=== PATIENT | male | born 1940 | race Caucasian/White ===

== ENCOUNTER 2020-03-10 18:39 | Inpatient (IN) | payer MEDICARE, OTHER ==
[~2020-03-10] VITALS: Ht 172.7 cm; Wt 77.1 kg
[2020-03-10] MEDS ORDERED: PIPERACILLIN /TAZOBACTAM 3.375 G in IV D5W 50 ML IV ONE (19:00)
[2020-03-10] MEDS ORDERED: IV NS 0.9% 1,000 ML BAG IV ONE (19:00)
[2020-03-10] MEDS ORDERED: ACETAMINOPHEN 650 MG/SUPP.RECT RC ONE ×2 (19:00→19:43)
--- NOTE | 2020-03-10 19:00 | NUR ---
PT SEEN AND EXAMINED BY .
--- NOTE | 2020-03-10 19:00 | NUR ---
PT BIBPA FROM SNF C/O FAILURE TO THRIVE AND DECREASED URINE OUTPUT FOR 3 DAYS, PT IS AAOX0, NOT IN RESPIRATORY DISTRESS, HOOKED TO MONITOR, KEPT RESTED AND COMFORTABLE, WILL CONTINUE TO MONITOR.
[2020-03-10] MEDS ORDERED: PIPERACILLIN /TAZOBACTAM 3.375 G VIAL IV ONE (19:43)
--- NOTE | 2020-03-10 19:45 | NUR ---
FLU AND COVID SWAB OBTAINED AND SENT TO LAB.
--- NOTE | 2020-03-10 19:50 | NUR ---
IV LINE ESTABLISHED, BLOOD DRAWN AND SENT TO LAB.
--- NOTE | 2020-03-10 20:00 | NUR ---
URINE SEPCIMEN COLLECTED VIA STRAIGHT CATH AND SENT TO LAB.
[2020-03-10 20:12] LABS: BASOPHILS % (AUTO) 0.5 % (0.0-2.0); EOSINOPHILS % (AUTO) 0.4 % (0.0-6.0); HEMATOCRIT 42 % (39-51); HEMOGLOBIN 14.1 g/dL (13.5-17.5); LYMPHOCYTES # (AUTO) 0.9 /CMM (0.8-4.8); LYMPHOCYTES % (AUTO) 13.1 % (20.0-44.0); MEAN CORPUSCULAR HGB CONC 34 g/dl (31.0-36.0); MEAN CORPUSCULAR VOLUME 89 fL (80-96); MONOCYTES # (AUTO) 0.7 /CMM (0.1-1.30); MONOCYTES % (AUTO) 10.6 % (2.0-12.0); NEUTROPHILS % (AUTO) 75.4 % (43.0-81.0); PLATELET COUNT (AUTO) 238 /CMM (150-450); WHITE BLOOD COUNT (AUTO) 6.6 K/uL (4.3-11.0)
[2020-03-10 20:19] LABS: CALCIUM, SERUM 8.7 mg/dL (8.5-10.1); CREATININE 0.8 mg/dL (0.6-1.3); POTASSIUM 3.8 mmol/L (3.5-5.1)
[2020-03-10 20:20] LABS: CALCIUM, SERUM 8.7 mg/dL (8.5-10.1); CARBON DIOXIDE 26 mmol/L (21-32); CHLORIDE 101 mmol/L (98-107); CREATININE 0.8 mg/dL (0.6-1.3); GLUCOSE 103 mg/dL (74-106); POTASSIUM 3.8 mmol/L (3.5-5.1); SODIUM SERUM 137 mmol/L (136-145); UREA NITROGEN, BLOOD 19 mg/dL (7-18)
[2020-03-10 20:35] LABS: ALBUMIN 2.6 g/dL (3.4-5.0); BILIRUBIN,TOTAL 0.9 mg/dL (0.2-1.0); TOTAL PROTEIN, SERUM 7.6 g/dL (6.4-8.2)
[2020-03-10 20:36] LABS: ALANINE AMINOTRANSFERASE 65 U/L (12-78); ALBUMIN 2.6 g/dL (3.4-5.0); ALKALINE PHOSPHATASE 92 U/L (46-116); ASPARTATE AMINOTRANSFERASE 97 U/L (15-37); BILIRUBIN,DIRECT 0.2 mg/dL (0.0-0.2); BILIRUBIN,TOTAL 0.9 mg/dL (0.2-1.0); TOTAL PROTEIN, SERUM 7.7 g/dL (6.4-8.2)
[2020-03-10] MEDS ORDERED: FINA5TAB3 PO (20:47)
[2020-03-10] MEDS ORDERED: ATOR10TA PO (20:47)
[2020-03-10] MEDS ORDERED: PROP10TA10 PO (20:47)
[2020-03-10] MEDS ORDERED: MEMA10TA56 PO (20:47)
[2020-03-10] MEDS ORDERED: BETH50TA PO (20:47)
[2020-03-10] MEDS ORDERED: CALC355O18 (20:47)
[2020-03-10] MEDS ORDERED: BETH50TA8 PO (20:47)
[2020-03-10] MEDS ORDERED: LEVE500T9 PO (20:47)
[2020-03-10 20:56] LABS: APPEARANCE,URINE Slightly Cloudy (CLEAR); BILIRUBIN,URINE SMALL (NEGATIVE); BLOOD, URINE Negative Ery/uL (NEGATIVE); COLOR,URINE Yellow (YELLOW); KETONES,URINE Trace (NEGATIVE); LEUKOCYTE ESTERASE ,URINE Negative (NEGATIVE); NITRITE, URINE Negative (NEGATIVE); PROTEIN,URINE 30 mg/dl (NEGATIVE); UGLUCOSE Negative (NEGATIVE)
[2020-03-10 21:12] LABS: BACTERIA,URINE Few /HPF (None Seen); RBC,URINE 0-2 /HPF (0-2); SQUAMOUS EPITHELIAL CELL,UR Few /HPF (None Seen); WBC,URINE 0-2 /HPF (0-3)
[2020-03-10 21:36] LABS: C-REACTIVE PROTEIN 8.6 mg/dL (0.0-0.9)
--- NOTE | 2020-03-10 21:54 | NUR ---
CALLED DR NIXON -LEFT MSG
[2020-03-10 22:00] VITALS: BP 125/63
--- NOTE | 2020-03-10 22:11 | NUR ---
CALLED HOUSE SUP FOR TELE BED
[2020-03-10] MEDS ORDERED: LORAZEPAM INJ 2 MG/ML VIAL ONE (23:27)
[2020-03-10] MEDS ORDERED: HALOPERIDOL LACTATE INJ 5 MG/ML VIAL ONE (23:28)
--- NOTE | 2020-03-10 23:40 | NUR ---
REPORT GIVEN TO KHUSHI VOGEL FOR SARAY.
[2020-03-11] VITALS: BP 125/63
[2020-03-11] MEDS ORDERED: HALOPERIDOL LACTATE INJ 5 MG/ML VIAL IM ONE
--- NOTE | 2020-03-11 | NUR ---
RN NOTES RECEIVED PT. FROM ER WITH DX. OF PNA, RESPIRATORY FAILURE, POSSIBLE COVID-19, PT. ALREADY PULLED OUT HIS IV ACCESS, TRYING TO HIT THE STAFF, SKIN ASSESSMENT DONE, SIDERAILSUPX2,, CONTINUE TO MONITOR
[2020-03-11] MEDS ORDERED: IV NS 0.9% 1,000 ML BAG IV SCH ×2 (01:00→03:00)
--- NOTE | 2020-03-11 01:30 | NUR ---
RN NOTES ER NURSE CAME UP AND ISERTED A LINE ON THE LEFT WRIST GAUGE 20
[2020-03-11] MEDS ORDERED: IV NS 0.9% 1,000 ML IV PRN (03:00)
[2020-03-11 04:00] VITALS: BP 142/91
[2020-03-11 05:37] LABS: CALCIUM, SERUM 7.8 mg/dL (8.5-10.1); CARBON DIOXIDE 19 mmol/L (21-32); CHLORIDE 103 mmol/L (98-107); CREATININE 0.8 mg/dL (0.6-1.3); GLUCOSE 112 mg/dL (74-106); SODIUM SERUM 136 mmol/L (136-145); UREA NITROGEN, BLOOD 15 mg/dL (7-18)
--- NOTE | 2020-03-11 06:44 | NUR ---
RN NOTES AWAKE, MORNING CARE RENDERED, NOT IN DISTRESS, NO PAIN NOTED, SIDERAILSUPX2, PT. NEEDS ATTENDED
--- NOTE | 2020-03-11 06:55 | NUR ---
RN NOTES SPOKE TO DR. NIXON AND INFORRMED HIM THAT PT WAS TRYING TO PULL POUT HIS IV ACCESS, TRYING TO HIT THE STAFF SINCE SHE CAME-UP , ASKED FOR RESTRAINT ORDER, DR. NIXON ORDERED, BILATERAL SOFT WRIST RESTRAINT, ORDER NOTED AND CARRIED OUT
--- NOTE | 2020-03-11 07:40 | NUR ---
RN NOTES RECEIVED PATIENT IN BEDRESTING COMFORTABLY IN MODERATE HIGH BACK REST. A/OX1. ON OXYGEN 2LPM/NC. NO S/S OF ACUTE RESPIRATORY DISTRESS AND NO C/O PAIN AT THIS TIME. NOTED WITH BILATERAL SOFE WRIST RESTRAINT. IV PRESENT ON LEFT FA, SIZE 20 WITH NS RUNNING @50ML/HR, INTACT & PATENT. ON ISOLATION PRECAUTION TO R/O COVID. SAFETY MEASURES IN PLACE. BED LOCKED, SIDE RAILS X2, CALL LIGHT WITHIN REACH. WILL CONTINUE TO MONITOR.
--- NOTE | 2020-03-11 09:00 | NUR ---
RN NOTE report received from [place] PURI for SARAY.
--- NOTE | 2020-03-11 10:30 | NUR ---
RN NOTE Received T.O. order from Dr. Dick to continue all home medications except for Urecholine. Also to add Lovenox 40meq sub-q for DVT prophylaxis.
[2020-03-11] MEDS: LEVETIRACETAM (250 MG) 250 MG TABLET PO SCH ×2 (10:58→20:50)
--- NOTE | 2020-03-11 11:19 | NUR ---
RN NOTE report given to Jose PURI. Patient transferred to [facility] [place].
--- NOTE | 2020-03-11 11:25 | NUR ---
MS RN NOTE REPORT RECEIVED FROM ALLYN PURI IN [place]. PRIOR TO DC OF TELE MONITORING PATIENT WAS SINUS RHYTHM HR 94. PATIENT IN NO ACUTE DISTRESS. NO SOB NOTED. PATIENT BREATHING IS EVEN AND UNLABORED. PATIENT BREATHING ON OXYGEN 2L NC SATURATING >95% SPO2. PATIENT VITAL SIGNS WNL. PATIENT MAINTAIN ON ISOLATION PRECAUTIONS. PATIENT BED ALARM IS ON. HOB IS ELEVATED. PATIENT NOTED WITH BILATERAL SOFT WRIST RESTRAINTS, NOTED WITH GOOD CIRCULATION. PATIENT BED IS LOCKED AND IN LOWEST POSITION. CALL LIGHT WITHIN REACH. WILL CONTINUE TO MONITOR.
[2020-03-11] MEDS: POTASSIUM CHLORIDE 20 MEQ TAB.PRT.SR PO SCH ×3 (11:43→14:14)
[2020-03-11] MEDS ORDERED: BETHANECHOL CHLORIDE 50 MG TABLET PO SCH (13:00)
--- NOTE | 2020-03-11 14:08 | NUR ---
MS RN NOTE SPOKE WITH DR. NIXON. PER ORDER TO DISCONTINUE IV FLUIDS. Addendum: 03/11/20 at 1857 by DARIEN WOODS RN MS RN NOTE SPOKE WITH DR. NIXON. PATIENT DRINKING FLUIDS WITH ASSIST. PER ORDER TO DISCONTINUE IV FLUIDS.
[2020-03-11 16:00] VITALS: BP 131/85
[2020-03-11] MEDS: ATORVASTATIN 10 MG TABLET PO SCH (17:31)
[2020-03-11] MEDS: FINASTERIDE (5 MG) 5 MG TABLET PO SCH (17:31)
[2020-03-11] MEDS: PROPRANOLOL HCL 10 MG TABLET PO SCH (17:32)
[2020-03-11] MEDS: MEMANTINE HCL 5 MG TABLET PO SCH (17:32)
--- NOTE | 2020-03-11 18:57 | NUR ---
MS RN CLOSING NOTE PATIENT IN NO ACUTE DISTRESS. NO SOB NOTED. PATIENT BREATHING IS EVEN AND UNLABORED. PATIENT BREATHING ON OXYGEN NC AT 2L SATURATING >95% SPO2. PATIENT KEPT, CLEAN, DRY AND COMFORTABLE THROUGHOUT SHIFT. PATIENT TURNED AND REPOSITIONED Q2H. PATIENT WITH BILATERAL SOFT WRIST RESTRAINTS, NOTED WITH GOOD CIRCULATION. PATIENT BED IS LOCKED AND IN LOWEST POSITION. BED ALARM IS ON. HOB IS ELEVATED. CALL LIGHT WITHIN REACH. WILL ENDORSE CARE TO PM SHIFT FOR SARAY.
--- NOTE | 2020-03-11 19:30 | NUR ---
MS RN NOTE: PATIENT RESTING IN BED, NO ACUTE DISTRESS NOTED. BREATHING EVEN AND UNLABORED, NO SOB NOTED. IV TO LFA IN PLACE. BILATERAL WRIST RESTRAINTS IN PLACE WITH GOOD CIRCULATION. ISOLATION PRECAUTIONS OBSERVED. BED LOCKED AND IN LOWEST POSITION, CALL LIGHT IN REACH. WILL CONTINUE TO MONITOR.
[2020-03-11 20:15] VITALS: BP 118/82
[2020-03-11] MEDS: ENOXAPARIN SODIUM 40 MG/0.4 ML DISP.SYRIN SQ SCH (20:51)
--- NOTE | 2020-03-12 03:00 | NUR ---
MS RN NOTE: PATIENT SLEEPING IN BED, NO ACUTE DISTRESS NOTED. BREATHING EVEN AND UNLABORED, NO SOB NOTED. IV TO LFA IN PLACE. BILATERAL WRIST RESTRAINTS IN PLACE WITH GOOD CIRCULATION. ISOLATION PRECAUTIONS OBSERVED. BED LOCKED AND IN LOWEST POSITION, CALL LIGHT IN REACH. WILL CONTINUE TO MONITOR.
--- NOTE | 2020-03-12 06:10 | NUR ---
MS RN NOTE: PATIENT RESTING IN BED, NO ACUTE DISTRESS NOTED. BREATHING EVEN AND UNLABORED, NO SOB NOTED. IV TO LFA IN PLACE. BILATERAL WRIST RESTRAINTS IN PLACE WITH GOOD CIRCULATION. ISOLATION PRECAUTIONS OBSERVED. BED LOCKED AND IN LOWEST POSITION, CALL LIGHT IN REACH. WILL ENDORSE TO DAY NURSE TO CONTINUE WITH PLAN OF CARE.
--- NOTE | 2020-03-12 07:24 | NUR ---
RN opening notes Patient received on 2L nasal cannula, no sob noted, restraints present and renewed at 655. Bed Ridden, LFA with 20 gauge present. Regular diet, covid results pending. Bed at the lowest setting, call light within reach, side rails up x2.
[2020-03-12 08:00] VITALS: BP 125/84
[2020-03-12] MEDS: MEMANTINE HCL 5 MG TABLET PO SCH ×2 (08:15→17:15)
[2020-03-12] MEDS: PROPRANOLOL HCL 10 MG TABLET PO SCH ×2 (08:15→17:15)
[2020-03-12] MEDS: LEVETIRACETAM (250 MG) 250 MG TABLET PO SCH ×2 (08:15→20:12)
[2020-03-12] MEDS: POTASSIUM CHLORIDE 20 MEQ TAB.PRT.SR PO SCH (08:15)
[2020-03-12 09:57] LABS: CREATININE 0.6 mg/dL (0.6-1.3); POTASSIUM 3.6 mmol/L (3.5-5.1)
[2020-03-12] MEDS: ATORVASTATIN 10 MG TABLET PO SCH (17:15)
[2020-03-12] MEDS: FINASTERIDE (5 MG) 5 MG TABLET PO SCH (17:16)
--- NOTE | 2020-03-12 18:11 | NUR ---
rn closing notes patient remains on 2L nasal cannula, no sob noted, patient denies pain at this time. renew restraints at 0655 AM. regular diet, L FA 20 present. Bed at the lowest setting, call light within reach, side rails up x2. Will give report to NOC RN for SARAY bedside.
--- NOTE | 2020-03-12 19:00 | NUR ---
RN medsurg opening notes Received Pt from morning nurse. Pt is alert and orientedX1 and able to make needs known. Pt is resting in bed comfortably. Respiration is normal in 2 L NC. No SOB. No S/S of distress noted. IV sites at LFA# 20 is clean, intact, patent and SL. Bilateral soft wrist restraints is intact, skin is warm to touch, peripheral pulses checks and offered oral fluids and snacks. Safety precautions is maintained. Contact and droplet precautions are maintained for covid-19. Bed at low position, brakes locked, side rails upX3 padded and call light is within reach. Will continue to monitor.
[2020-03-12 20:00] VITALS: BP 112/71
[2020-03-12] MEDS: ENOXAPARIN SODIUM 40 MG/0.4 ML DISP.SYRIN SQ SCH (20:13)
[2020-03-12 20:56] VITALS: BP 112/71
--- NOTE | 2020-03-12 20:58 | NUR ---
cement kiln operator notes Called and spoke with Dr. Kassandra Victor regarding Pt positive for covid19. Received order from Dr. Victor for ABG in room air stats and connected Pt to heart monitor(telemetry). Order carried out.
[2020-03-12 21:59] LABS: ABG BASE EXCESS -1.7 mmol/L; ABG OXYGEN SATURATION 89.9 % (92.0-98.5); ABG PCO2 28.2 mmHg (35.0-45.0); ABG PH 7.481 (7.350-7.450); ABG PO2 56.2 mmHg (75.0-100.0); AaDO2 59.8 mmHg; COHb 0.4 % (0.5-1.5); MetHb 0.4 % (0.0-1.5); O2Hb 89.2 % (94.0-97.0); SITE, ABG Right Radial; VENT MODE, BG R/A
--- NOTE | 2020-03-12 22:25 | NUR ---
power barker notes ABG result is in. Called palak [facility] and leave a message regarding ABG test result. Awaiting for MD to call back.
[2020-03-13] VITALS (7 sets, daily range): BP systolic 106–128; BP diastolic 64–86
--- NOTE | 2020-03-13 06:51 | NUR ---
manager sharepoint closing notes Pt is alert and orientedX1 and able to make needs known. Pt is resting in bed comfortably. Respiration is normal in 2 L NC. No SOB. No S/S of distress noted. VS is stable. Tele monitor showed SR HR at 76 bpm. IV sites at LFA# 20 is clean, intact, patent and SL. Bilateral soft wrist restraints is intact, skin is warm to touch, skin and circulation checks Q 2hr. Offered oral fluids and snacks. Turned and repositioned Q 2 HR. Skin care provided. Routine meds were given as ordered. Kept Pt clean, dry and comfortable. Safety precautions is maintained. Contact and droplet precautions are maintained for covid-19. Bed at low position, brakes locked, side rails upX3 padded and call light is within reach. Will endorse to morning nurse for SARAY.
--- NOTE | 2020-03-13 07:35 | NUR ---
BRICKLAYER SEWER NOTES PATIENT AWAKE IN BED, NO RESPIRATORY DISTRESS, NO S/S OF DISCOMFORT AT THIS TIME. GRADUATE STUDIES DEAN ON SR 74. SKIN WARM TO TOUCH, IV ACCESS SITE INTACT AND PATENT. BILAT SOFT WRIST RESTRAINTS ON, CHECKED FOR REDNESS AND CIRCULATION. PATIENT'S NEEDS ATTENDED, BED ON LOWEST LOCKED POSITION, CALL LIGHT WITHIN REACH, WILL CONTINUE TO MONITOR.
[2020-03-13] MEDS: LEVETIRACETAM (250 MG) 250 MG TABLET PO SCH ×2 (08:32→20:39)
[2020-03-13] MEDS: POTASSIUM CHLORIDE 20 MEQ TAB.PRT.SR PO SCH (08:33)
[2020-03-13] MEDS: PROPRANOLOL HCL 10 MG TABLET PO SCH ×2 (08:33→17:41)
[2020-03-13] MEDS: MEMANTINE HCL 5 MG TABLET PO SCH ×2 (08:34→17:41)
--- NOTE | 2020-03-13 10:46 | NUR ---
CORPORATE COORDINATOR NOTES INFORMED DR. NIXON THAT PATIENT TESTED POSITIVE FOR COVID ON 03/10, IF ANY ORDERS FOR ABX, NO NEW ORDERS. WILL CONTINUE TO MONITOR.
[2020-03-13] MEDS: FINASTERIDE (5 MG) 5 MG TABLET PO SCH (17:41)
[2020-03-13] MEDS: ATORVASTATIN 10 MG TABLET PO SCH (17:41)
--- NOTE | 2020-03-13 18:41 | NUR ---
MS RN NOTES PATIENT AWAKE WATCHING TV, NO RESPIRATORY DISTRESS, NO C/O PAIN AT THIS TIME. SKIN WARM TO TOUCH, IV ACCESS SITE INTACT AND PATENT. PATIENT'S NEEDS ATTENDED, BED ON LOWEST LOCKED POSITION, CALL LIGHT WITHIN REACH. WILL ENDORSE TO ONCOMING NURSE.
--- NOTE | 2020-03-13 19:25 | NUR ---
MS RN OPENING NOTES PATIENT SLEEPING IN BED, EASY TO AWAKEN. A/OX2. ON 2L NC. NO S/S OF ACUTE RESPIRATORY DISTRESS AND NO C/O PAIN AT THIS TIME. DROPLET/CONTACT PRECAUTION IN PLACE FOR POSITIVE COVID 19. BILATERAL SOFT WRIST RESTRAINTS PRESENT; SKIN CIRCULATION WNL. IV PRESENT ON LEFT FA, SIZE 20, INTACT & PATENT, HEP LOCKED. SAFETY MEASURES IN PLACE AND PATIENT'S NEEDS MET. BED LOCKED, ALARM ON, SIDE RAILS X2, CALL LIGHT WITHIN REACH. WILL CONTINUE TO MONITOR.
[2020-03-13] MEDS: ENOXAPARIN SODIUM 40 MG/0.4 ML DISP.SYRIN SQ SCH (20:40)
[2020-03-14] VITALS: BP 126/78
--- NOTE | 2020-03-14 06:49 | NUR ---
PATHOLOGY SECRETARY CLOSING NOTES PATIENT SLEEPING IN BED, EASY TO AWAKEN. A/OX2. ON 2L NC. NO S/S OF ACUTE RESPIRATORY DISTRESS AND NO C/O PAIN AT THIS TIME. TELE MONITOR READING NSR WITH 1ST DEGREE AV BLOCK, HEART RATE 74. DROPLET/CONTACT PRECAUTIONS REMAIN IN PLACE FOR COVID 19. BILATERAL SOFT WRIST RESTRAINTS ARE CURRENTLY OFF; PATIENT IS CALM AND COOPERATIVE. IV ON LEFT FA, SIZE 20, REMAINS INTACT & PATENT. SAFETY MEASURES IN PLACE AND PATIENT'S NEEDS MET. BED LOCKED, ALARM ON, SIDE RAILS X2, CALL LIGHT WITHIN REACH. WILL ENDORSE TO DAY SHIFT NURSE PLAN OF CARE.
--- NOTE | 2020-03-14 07:20 | NUR ---
UAT TESTER NOTES PATIENT RESTING IN BED, ALERT AND ORIENTED X2, PATIENT ON DROPLET PRECAUTIONS, POSITIVE FOR COVID, SAFETY PRECAUTIONS IN PLACE. PATIENT IN NO RESPIRATORY DISTRESS, ON O2 AT 2LPM VIA NC, NO S/S OF DISCOMFORT OR ANY PAIN AT THIS TIME. BASKET MENDER ON SR 70, SKIN WARM TO TOUCH, BILAT. SOFT WRIST RESTRAINTS CURRENTLY OFF AT THIS TIME, PATIENT COOPERATIVE AND CALM, WILL REASSESS. IV ACCESS SITE INTACT AND PATENT. PATIENT'S NEEDS ATTENDED, BED ON LOWEST LOCKED POSITION, CALL LIGHT WITHIN REACH. WILL CONTINUE TO MONITOR.
[2020-03-14 08:41] VITALS: BP 124/80
[2020-03-14] MEDS: POTASSIUM CHLORIDE 20 MEQ TAB.PRT.SR PO SCH (09:07)
[2020-03-14] MEDS: PROPRANOLOL HCL 10 MG TABLET PO SCH ×2 (09:07→17:42)
[2020-03-14] MEDS: LEVETIRACETAM (250 MG) 250 MG TABLET PO SCH ×2 (09:07→20:47)
[2020-03-14] MEDS: MEMANTINE HCL 5 MG TABLET PO SCH ×2 (09:08→17:43)
[2020-03-14 13:47] VITALS: BP 123/80
[2020-03-14 16:17] VITALS: BP 126/69
[2020-03-14] MEDS: ATORVASTATIN 10 MG TABLET PO SCH (17:45)
[2020-03-14] MEDS: FINASTERIDE (5 MG) 5 MG TABLET PO SCH (17:45)
--- NOTE | 2020-03-14 18:53 | NUR ---
QUALITY SYSTEM MANAGER NOTES PATIENT RESTING IN BED, NO RESPIRATORY DISTRESS, O2 ON 2LPM VIA NC. NO C/O PAIN AT THIS TIME. EXPRESS MANAGER ON SR 72, SKIN WARM TO TOUCH, IV ACCESS SITE INTACT AND PATENT. BILAT. RESTRAINTS OFF, PATIENT CALM AND COOPERATIVE. PATIENT'S NEEDS ATTENDED, BED ON LOWEST LOCKED POSITION, CALL LIGHT WITHIN REACH. WILL ENDORSE TO ONCOMING NURSE.
--- NOTE | 2020-03-14 19:15 | NUR ---
RED MUD THICKENER OPERATOR OPENING NOTES PATIENT AWAKE AND RESTING IN BED COMFORTABLY. A/O X2. ON 2L NC. NO S/S OF ACUTE RESPIRATORY DISTRESS AND NO C/O PAIN AT THIS TIME. TELE MONITOR READING NSR W/ 1ST DEGREE AV BLOCK, HEART RATE 89. DROPLET AND CONTACT PRECAUTION IN PLACE FOR POSITIVE COVID 19. IV PRESENT ON LEFT FA, SIZE 20, INTACT & PATENT, HEP LOCKED. BILATERAL SOFT WRIST RESTRAINTS CURRENTLY OFF; PATIENT IS CALM AND COOPERATIVE. SAFETY MEASURES IN PLACE AND PATIENT'S NEEDS MET. BED LOCKED, ALARM ON, SIDE RAILS X3, CALL LIGHT WITHIN REACH. WILL CONTINUE TO MONITOR.
[2020-03-14 20:00] VITALS: BP 124/82
[2020-03-14] MEDS: ENOXAPARIN SODIUM 40 MG/0.4 ML DISP.SYRIN SQ SCH (20:48)
[2020-03-14 21:37] VITALS: BP 124/82
[2020-03-15] VITALS (8 sets, daily range): BP systolic 113–145; BP diastolic 63–75
--- NOTE | 2020-03-15 02:22 | NUR ---
CERAMIC SPRAYER NOTES PATIENT BECAME AGITATED AND AGGRESSIVE. BEGAN TO REMOVE NASAL CANULA, TELE MONITOR, AND TRIED TO KICK NURSES. BILATERAL SOFT WRIST RESTRAINTS PLACED ON PATIENT; STANDING ORDERS FOR RESTRAINTS ALREADY IN PLACE. VITAL SIGNS - BP: 142/91 HR: 114 RR: 22 SPO2: 95 ON 2L NC. WILL CONTINUE TO MONITOR PATIENT.
--- NOTE | 2020-03-15 07:01 | NUR ---
CUT OFF MAN CLOSING NOTES PATIENT AWAKE AND WATCHING TV IN BED. A/O X2. ON 2L NC. NO S/S OF ACUTE RESPIRATORY DISTRESS AND NO C/O PAIN AT THIS TIME. TELE MONITOR READING NSR W/ 1ST DEGREE AV BLOCK, HEART RATE 99. DROPLET AND CONTACT PRECAUTION REMAIN IN PLACE FOR POSITIVE COVID 19. IV ON LEFT FA, SIZE 20, INTACT & PATENT, HEP LOCKED. BILATERAL SOFT WRIST RESTRAINTS CURRENTLY ON FOR PATIENT SAFETY. SAFETY MEASURES IN PLACE AND PATIENT'S NEEDS MET. BED LOCKED, ALARM ON, SIDE RAILS X3, CALL LIGHT WITHIN REACH. WILL ENDORSE TO DAY SHIFT NURSE PLAN OF CARE.
[2020-03-15] MEDS: LEVETIRACETAM (250 MG) 250 MG TABLET PO SCH ×2 (08:58→21:04)
[2020-03-15] MEDS: MEMANTINE HCL 5 MG TABLET PO SCH ×2 (08:58→17:52)
[2020-03-15] MEDS: POTASSIUM CHLORIDE 20 MEQ TAB.PRT.SR PO SCH (08:58)
[2020-03-15] MEDS: PROPRANOLOL HCL 10 MG TABLET PO SCH ×2 (09:07→17:52)
--- NOTE | 2020-03-15 15:25 | NUR ---
CALLED DR NIXON REGARDING PT IS COVID POSITIVE AND IS NOT GETTING PLAQUENIL FOR TX AND IS ON TELE MONITOR.DR NIXON STATED THAT THERE IS NO GUIDELINE DIRECTED THERAPY THAT EXISTS OF TODAY FOR COVID-19 NOR ANY PROVEN THERAPY BASED ON ANY REASONABLY WELL DESIGNED CLINICAL TRIALS SHOWING ANY MEDICATION HAS PROVIDED BENEFIT AND THAT THE MAIN APPROACH FOR [place] IS ONLY SUPPORTIVE CARE.NOTIFIED CHARGE NURSE,STEPHANIE AND MADE AWARE.DR NIXON STATED THAT HE ASKED FOR THE TELE TO BE DC'D 5 DAYS AGO.
[2020-03-15] MEDS: FINASTERIDE (5 MG) 5 MG TABLET PO SCH (17:52)
[2020-03-15] MEDS: ATORVASTATIN 10 MG TABLET PO SCH (17:52)
[2020-03-15] MEDS: ENOXAPARIN SODIUM 40 MG/0.4 ML DISP.SYRIN SQ SCH (21:23)
--- NOTE | 2020-03-16 06:51 | NUR ---
MS RN NOTES AWAKE & RESPONSIVE. NOT IN ANY DISTRESS. NO SOB NOTED. DENIES ANY PAIN OR DISCOMFORT AT THIS TIME. WITH IV-HL PATENT & INTACT. AM CARE DONE. MONITORED ACCORDINGLY. CALL LIGHT WITHIN REACH. BED IN LOWEST POSITION. SR UP X 3 WITH BED ALARM ON FOR SAFETY. WILL ENDORSE TO NEXT SHIFT.
[2020-03-16 08:00] VITALS: BP 139/85
--- NOTE | 2020-03-16 08:00 | NUR ---
MS RN OPENING NOTES PATIENT AWAKE AND RESTING IN BED COMFORTABLY. A/O X2. ON 2L NC. NO S/S OF ACUTE RESPIRATORY DISTRESS AND NO C/O PAIN AT THIS TIME. DROPLET AND CONTACT PRECAUTION IN PLACE FOR POSITIVE COVID 19. IV PRESENT ON LEFT FA, SIZE 20, INTACT & PATENT, HEP LOCKED. BILATERAL SOFT WRIST RESTRAINTS CURRENTLY OFF AND CHECKED FOR CIRCULATION AND RELEASED DURING AM CARE;PT ABLE TO MOVE BUE WITHOUT DIFFICULTY. PATIENT IS CALM AND COOPERATIVE. SAFETY MEASURES IN PLACE AND PATIENT'S NEEDS MET. BED LOCKED, ALARM ON, SIDE RAILS X3, CALL LIGHT WITHIN REACH. WILL CONTINUE TO MONITOR.
[2020-03-16] MEDS: POTASSIUM CHLORIDE 20 MEQ TAB.PRT.SR PO SCH (09:06)
[2020-03-16] MEDS: MEMANTINE HCL 5 MG TABLET PO SCH ×2 (09:07→17:09)
[2020-03-16] MEDS: PROPRANOLOL HCL 10 MG TABLET PO SCH ×2 (09:07→17:10)
[2020-03-16] MEDS: LEVETIRACETAM (250 MG) 250 MG TABLET PO SCH ×2 (09:07→21:00)
[2020-03-16 16:00] VITALS: BP_SYST 117; BP_SYST 139; BP_DIAS 76; BP_DIAS 85
[2020-03-16] MEDS: FINASTERIDE (5 MG) 5 MG TABLET PO SCH (17:09)
[2020-03-16] MEDS: ATORVASTATIN 10 MG TABLET PO SCH (17:10)
[2020-03-16 19:30] VITALS: BP 136/85
--- NOTE | 2020-03-16 19:30 | NUR ---
MS RN NOTES PATIENT IN BED, AWAKE, ALERT AND ORIENTED X 2. BREATHING EVEN AND UNLABORED ON 2L NC. SHOWS NO SIGNS OF ACUTE RESPIRATORY DISTRESS. NO ACUTE PAIN. ON BILATERAL SOFT WRIST RESTRAINTS HOURLY CHECK FOR CIRCULATION AND NO SKIN TEARS. LFA #20G IS CLEAN DRY AND INTACT. SHOWS NO SIGNS OF INFILTRATION NO REDNESS. SAFETY PRECAUTIONS IN PLACE. DROPLET AND CONTACT PRECAUTIONS KEPT IN PLACE. BED IN LOWEST POSITION, LOCKED, AND CALL LIGHT KEPT WITHIN REACH. WILL CONTINUE TO MONITOR.
[2020-03-16 20:00] VITALS: BP 136/85
[2020-03-16] MEDS: ENOXAPARIN SODIUM 40 MG/0.4 ML DISP.SYRIN SQ SCH (21:00)
[2020-03-17 04:00] VITALS: BP 102/53
--- NOTE | 2020-03-17 06:31 | NUR ---
MS RN NOTES PATIENT IN BED, ASLEEP, ALERT AND ORIENTED X 2. BREATHING EVEN AND UNLABORED ON 2L NC. SHOWS NO SIGNS OF ACUTE RESPIRATORY DISTRESS. NO ACUTE PAIN. TELE MONITOR SR WITH 2ND AV BLOCK. ON BILATERAL SOFT WRIST RESTRAINTS HOURLY CHECK FOR CIRCULATION AND NO SKIN TEARS. LFA #20G IS CLEAN DRY AND INTACT. SHOWS NO SIGNS OF INFILTRATION NO REDNESS. SAFETY PRECAUTIONS IN PLACE. DROPLET AND CONTACT PRECAUTIONS KEPT IN PLACE. ALL DUE MEDICATIOSN GIVEN. BED IN LOWEST POSITION, LOCKED, AND CALL LIGHT KEPT WITHIN REACH. WILL ENDORSE TO ONCOMING NURSE.
[2020-03-17 07:23] LABS: CALCIUM, SERUM 9.1 mg/dL (8.5-10.1); CREATININE 0.8 mg/dL (0.6-1.3); POTASSIUM 4.4 mmol/L (3.5-5.1)
--- NOTE | 2020-03-17 07:30 | NUR ---
RN MS NOTES PT IN BED, ASLEEP, EASY TO AROUSE, ALERT TO SELF, NO SIGN OF PAIN OR DISTRESS, RESPIRATIONS NORMAL, KEPT COMFORTABLE AND CARTOGRAPHY/MAPPING TECHNICIAN BED.
[2020-03-17 08:39] VITALS: BP 117/76
[2020-03-17] MEDS: PROPRANOLOL HCL 10 MG TABLET PO SCH ×2 (09:02→17:59)
[2020-03-17] MEDS: MEMANTINE HCL 5 MG TABLET PO SCH ×2 (09:02→17:59)
[2020-03-17] MEDS: LEVETIRACETAM (250 MG) 250 MG TABLET PO SCH ×2 (09:02→21:09)
[2020-03-17] MEDS: POTASSIUM CHLORIDE 20 MEQ TAB.PRT.SR PO SCH (09:02)
[2020-03-17 12:00] VITALS: BP 111/72
[2020-03-17 17:53] VITALS: BP 135/87
[2020-03-17] MEDS: ATORVASTATIN 10 MG TABLET PO SCH (17:59)
[2020-03-17] MEDS: FINASTERIDE (5 MG) 5 MG TABLET PO SCH (17:59)
--- NOTE | 2020-03-17 19:00 | NUR ---
OXIDATION ENGINEER NOTES PT IN BED, AWAKE, ALERT TO SELF, NOT IN DISTRESS, CALL LIGHT WITHIN REACH, PM MEDS GIVEN, PM CARE PROVIDED, PER CM, DR. NIXON SAID OK TO D/C PATIENT, CM TO COORDINATE WITH SNF IF THEY ARE GOING TO ACCEPT PT BACK.
[2020-03-17 20:00] VITALS: BP 111/69
--- NOTE | 2020-03-17 20:00 | NUR ---
RN NOTES PATIENT ALERT/ORIENTED X2, TOLERATING 2LPM VIA NC, NO DISTRESS, COVID +, ON RESTRAINTS DUE TO PULLING OUT IV LINES, RISK FOR INJURY DUE TO CONFUSION, WILL CONTINUE TO MONITOR.
[2020-03-17 20:48] VITALS: BP 111/69
[2020-03-17] MEDS: ENOXAPARIN SODIUM 40 MG/0.4 ML DISP.SYRIN SQ SCH (21:16)
[2020-03-18] VITALS: BP 131/87
[2020-03-18 04:00] VITALS: BP 120/80
[2020-03-18 04:27] VITALS: BP 120/80
--- NOTE | 2020-03-18 06:42 | NUR ---
RN NOTES PM SHIFT ALERT AND AWAKE, STABLE ON 2LPM VIA NC, BILATERAL WRIST RESTRAINTS, MAINTAINS DROPLET ISOLATION, AFEBRILE, VSS, NO COUGHING NOTED, PLANNED DISCHARGE PLANNING BACK TO SNF, PAINTER ASSISTANT COORDINATING WITH [facility] IF THEY WILL RE ADMIT PATIENT.
[2020-03-18 08:00] VITALS: BP 123/82
[2020-03-18] MEDS: MEMANTINE HCL 5 MG TABLET PO SCH (09:48)
[2020-03-18] MEDS: POTASSIUM CHLORIDE 20 MEQ TAB.PRT.SR PO SCH (09:48)
[2020-03-18] MEDS: LEVETIRACETAM (250 MG) 250 MG TABLET PO SCH (09:48)
[2020-03-18] MEDS: PROPRANOLOL HCL 10 MG TABLET PO SCH (10:06)
--- NOTE | 2020-03-18 13:30 | NUR ---
REPORT CALLED TO ROBIN PURI
[2020-03-18 16:00] VITALS: BP 129/71
--- NOTE | 2020-03-18 16:30 | NUR ---
PATIENT CLEARED FOR D/C BACK TO FACILITY BY MD. PATIENT AWAKE ALERT AND ORIENTED TO NAME AND PLACE. PATIENT POSITIVE FOR COVID-19 WITH NO SYMPTOMS. BREATHING UNLABORED AND EVEN ON ROOM AIR SATURATING ABOVE 95 %, AFEBRILE WITH STABLE VS. PER MD ISOLATION FOR 7 MORE DAY IS RECOMMENDED. REPORT CALLED TO ROBIN PURI. D/C PICTURES TAKEN AND PLACED IN THE CHART. IV LINE REMOVED WITH NO BLEEDING NOTED. ID WRIST BAND REMOVED. D/C INSTRUCTIONS PROVIDED, BUT PATIENT UNABLE TO SIGH. PATIENT HAS NO BELONGINGS. PT PICKED UP BY AMBULANCES. ISOLATION PRECAUTIONS OBSERVED
== END 2020-03-18 18:28 | DRG 177 ==
LOC: ER 18:49 → TELE 23:04 → MED 03-11 11:22 → MEDSG2 03-11 11:31 → TELE2 03-12 21:15 → MEDSG2 03-15 16:02 → TELE2 03-16 21:31
PROVIDERS: ADMIT Internal Medicine; ATTEND Internal Medicine
DX: U07.1 COVID-19 (principal); J12.89 Other viral pneumonia; J96.91 Respiratory failure, unspecified with hypoxia; N17.9 Acute kidney failure, unspecified; E46 Unspecified protein-calorie malnutrition; G40.909 Epilepsy, unspecified, not intractable, without status epilepticus; G30.9 Alzheimer's disease, unspecified; F02.80 Dementia in other diseases classified elsewhere, unspecified severity, without behavioral disturbance, psychotic disturbance, mood disturbance, and anxiety; N40.1 Benign prostatic hyperplasia with lower urinary tract symptoms; E87.6 Hypokalemia; R63.4 Abnormal weight loss; Z68.25 Body mass index [BMI] 25.0-25.9, adult; G20 Parkinson's disease; G25.2 Other specified forms of tremor; E78.5 Hyperlipidemia, unspecified; I10 Essential (primary) hypertension
CPT/HCPCS: 36415; 36600; 71045-TC; 80048-TC; 80053-TC; 80076-TC; 81000-TC; 82550-TC; 82728-TC; 83605-TC; 83615-TC; 83880; 84484-TC; 85025-TC; 85378-TC; 85730-TC; 86140-TC; 87040-TC; 87081-TC; 87086-TC; 97110-TC; 97116-TC; 97530-TC; G0378; J1630; J1650; J2060; J2543; J7030; J7060